=== PATIENT | female | born 1980 | race Asian ===

== ENCOUNTER → 2024-01-04 | Outpatient (CLI) | payer OTHER ==
[2024-01-04 07:39] LABS: LUTEINIZING HORMONE 19.9 mIU/ML
[2024-01-04 07:40] LABS: ESTRADIOL 547.3 PG/ML; PROGESTERONE 0.59 NG/ML
== END ==
LOC: M LAB 06:38
PROVIDERS: ATTEND Obstetrics & Gynecology
DX: N97.8 Female infertility of other origin (principal); Z31.89 Encounter for other procreative management

== ENCOUNTER → 2024-01-27 | Outpatient (CLI) | payer OTHER ==
[2024-01-27 08:15] LABS: HCG, SERUM QUANTITATIVE < 2.6 MIU/ML (<4.2)
[2024-01-27 08:20] LABS: ESTRADIOL 46.7 PG/ML; PROGESTERONE 0.91 NG/ML
== END ==
LOC: M LAB 07:21
PROVIDERS: ATTEND Obstetrics & Gynecology
DX: N97.8 Female infertility of other origin (principal); Z31.89 Encounter for other procreative management

== ENCOUNTER → 2024-06-16 | Outpatient (CLI) | payer OTHER ==
[2024-06-16 07:47] LABS: HCG, SERUM QUANTITATIVE < 2.6 MIU/ML (<4.2)
[2024-06-16 07:51] LABS: LUTEINIZING HORMONE 4.3 mIU/ML; PROGESTERONE 0.66 NG/ML
[2024-06-16 07:52] LABS: ESTRADIOL 43.2 PG/ML
== END ==
LOC: M LAB 07:00
PROVIDERS: ATTEND Obstetrics & Gynecology Reproductive Endocrinology
DX: Z31.89 Encounter for other procreative management (principal); N97.8 Female infertility of other origin

== ENCOUNTER → 2024-06-23 | Outpatient (CLI) | payer OTHER ==
[2024-06-23 13:33] LABS: ESTRADIOL 1013.4 PG/ML; LUTEINIZING HORMONE 9.5 mIU/ML; PROGESTERONE 0.79 NG/ML
== END ==
LOC: M PLALAB 08:21 → M LAB 08:21
PROVIDERS: ATTEND Obstetrics & Gynecology Reproductive Endocrinology
DX: N97.8 Female infertility of other origin (principal)

== ENCOUNTER → 2024-06-23 | Outpatient (CLI) | payer OTHER | LOC: M WHC 09:09 | PROVIDERS: ATTEND Obstetrics & Gynecology Reproductive Endocrinology | DX: N97.8 Female infertility of other origin (principal); R93.89 Abnormal findings on diagnostic imaging of other specified body structures; Z31.89 Encounter for other procreative management ==

== ENCOUNTER → 2024-08-10 | Outpatient (CLI) | payer OTHER ==
[2024-08-10 11:27] LABS: ESTRADIOL 38.2 PG/ML; FOLLICLE STIMULATING HORMONE 9.2 mIU/ML; LUTEINIZING HORMONE 2.7 mIU/ML
== END ==
LOC: M LAB 10:21
PROVIDERS: ATTEND Obstetrics & Gynecology Reproductive Endocrinology
DX: N97.9 Female infertility, unspecified (principal)

== ENCOUNTER → 2024-09-28 | Outpatient (CLI) | payer OTHER ==
[2024-09-28 11:33] LABS: HCG, SERUM QUANTITATIVE < 2.6 MIU/ML (<4.2)
[2024-09-28 11:37] LABS: LUTEINIZING HORMONE 3.2 mIU/ML
[2024-09-28 11:38] LABS: ESTRADIOL 49.9 PG/ML; PROGESTERONE 0.56 NG/ML
== END ==
LOC: M LAB 10:33
PROVIDERS: ATTEND Obstetrics & Gynecology Reproductive Endocrinology
DX: N97.9 Female infertility, unspecified (principal)

== ENCOUNTER → 2024-10-02 | Outpatient (CLI) | payer OTHER | LOC: M LAB 07:43 | PROVIDERS: ATTEND Obstetrics & Gynecology Reproductive Endocrinology | DX: N97.9 Female infertility, unspecified (principal) ==

== ENCOUNTER → 2024-10-04 | Outpatient (CLI) | payer OTHER | LOC: M LAB 09:15 | PROVIDERS: ATTEND Obstetrics & Gynecology Reproductive Endocrinology | DX: N97.9 Female infertility, unspecified (principal) ==

== ENCOUNTER → 2024-10-06 | Outpatient (CLI) | payer OTHER ==
[2024-10-06 09:31] LABS: ESTRADIOL 633.0 PG/ML; PROGESTERONE 0.74 NG/ML
== END ==
LOC: M LAB 08:11
PROVIDERS: ATTEND Obstetrics & Gynecology Reproductive Endocrinology
DX: N97.9 Female infertility, unspecified (principal)

== ENCOUNTER 2025-01-16 12:05 | Day surgery (SDC) | payer OTHER ==
[~2025-01-16] VITALS: Ht 162.6 cm; Wt 64.4 kg
[~2025-01-16 12:05] MED LIST: ATOM10CA PO; CLIN1GEL22 TOP; D 50CAP2 PO; ESTR1DIS TD; KETOROLAC 30 MG/ML 1 ML VIAL As Ordered ONE; LEUP1INJ4; LIDOCAINE 2% 100 MG/5 ML SDV (FOR ANES.) As Ordered ONE; METF10004 PO; METR60GE3 EX; OMEP1CAP73 PO; ONDANSETRON 4MG/2ML VIAL As Ordered ONE; PROP80TA PO; [UNRECOGNIZED DRUG - CODE] EX; dexAMETHasone 4 MG/ML 1 ML VIAL As Ordered ONE
[2025-01-16] MEDS ORDERED: MIDAZOLAM INJ 2 MG/2 ML VIAL As Ordered ONE (12:17)
[2025-01-16 12:38] LABS: PLATELET COUNT, AUTOMATED 397 10^3/uL (150-450)
[2025-01-16] MEDS ORDERED: WELLTAB38 PO (12:40)
[2025-01-16] MEDS ORDERED: GABA-1171 PO (12:40)
[2025-01-16] MEDS: SILVER NITRATE APPLICATOR (1 = QTY 10) As Ordered ONE (13:05)
[2025-01-16] MEDS ORDERED: ACETAMINOPHEN 1000MG/100ML IV BAG As Ordered ONE (13:30)
[2025-01-16] MEDS: LIDOCAINE 1% SDV 30 ML VIAL As Ordered ONE (13:45)
[2025-01-16] MEDS ORDERED: ONDANSETRON 4MG/2ML VIAL IV PRN (14:10)
[2025-01-16] MEDS ORDERED: MORPHINE 2 MG/ML 1 ML VIAL IV PRN (14:10)
[2025-01-16] MEDS ORDERED: HYDROMORPHONE HCL 0.5 MG/0.5 ML SYRINGE IV PRN (14:10)
[2025-01-16 15:51] VITALS: BP 115/68; TEMP 97.7; O2SAT 100
== END 2025-01-16 16:01 | disposition home or self-care (01) ==
LOC: M SDC 12:05
PROVIDERS: ATTEND Obstetrics & Gynecology
DX: N97.9 Female infertility, unspecified (principal); N85.8 Other specified noninflammatory disorders of uterus; E28.2 Polycystic ovarian syndrome; K21.9 Gastro-esophageal reflux disease without esophagitis; Z79.899 Other long term (current) drug therapy
CPT/HCPCS: 36415; 58558; 81025; 85027; 88305; J0131; J1100; J1885; J2250; J2405; J3010